=== PATIENT | female | born 1935 | race Caucasian/White ===

== ENCOUNTER 2021-09-14 10:02 | Outpatient (CLI) | payer MEDICARE, SELFPAY ==
--- NOTE | ~2021-09-14 | XR_ITS ---
EXAMINATION: XR shoulder RT min 2V DATE: 09/14/2021 10:26 INDICATION: Right upper arm injury post fall TECHNIQUE: 1. AP internally and externally rotated, AP oblique externally rotated and transscapular Y views of t he right shoulder were obtained. 2. Internal and axillary rotated views of the right humerus were obtained. 3. AP, lateral and 2 oblique views of the right elbow were obtained. COMPARISON: None FINDINGS: Normal alignment at the right shoulder and elbow. No fracture. Mild to moderate glenohumeral osteoart hritis and moderate acromioclavicular osteoarthritis. Joint space at the right elbow are relatively p reserved. No right elbow joint effusion. Right lung is clear. Chronic T12 compression fracture with o ne third vertebral body height loss. Soft tissues are unremarkable. IMPRESSION: 1. 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 No acute osseous abnormality. Reviewed, dictated and finalized at location A. PROGRAMMER IMPRESSION: 1. 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 No acute osseous abno rmality.
--- NOTE | ~2021-09-14 | XR_ITS ---
EXAMINATION: XR shoulder RT min 2V DATE: 09/14/2021 10:26 INDICATION: Right upper arm injury post fall TECHNIQUE: 1. AP internally and externally rotated, AP oblique externally rotated and transscapular Y views of t he right shoulder were obtained. 2. Internal and axillary rotated views of the right humerus were obtained. 3. AP, lateral and 2 oblique views of the right elbow were obtained. COMPARISON: None FINDINGS: Normal alignment at the right shoulder and elbow. No fracture.Mild to moderate glenohumeral osteoart hritis and moderate acromioclavicular osteoarthritis. Joint space at the right elbow are relatively p reserved. No right elbow joint effusion. Right lung is clear. Chronic T12 compression fracture with o ne third vertebral body height loss. Soft tissues are unremarkable. IMPRESSION: 1. 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 No acute osseous abnormality. Reviewed, dictated and finalized at location A. MBLER METAL BUILDING IMPRESSION: 1. 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 No acute osseous abno rmality.
== END 2021-09-14 10:03 | disposition home or self-care (01) ==
LOC: ANHIMG 10:05
PROVIDERS: PCP Physician Assistant; Visit Provider Physician Assistant
DX: S99.921A Unspecified injury of right foot, initial encounter (principal); M19.011 Primary osteoarthritis, right shoulder; M48.54XA Collapsed vertebra, not elsewhere classified, thoracic region, initial encounter for fracture
CPT/HCPCS: 73030; 73060; 73080

== ENCOUNTER 2021-10-22 09:32 | Outpatient (CLI) | payer MEDICARE, SELFPAY ==
[2021-10-22 09:55] LABS: Appearance Urine Cloudy (Clear); Bilirubin Urine Negative (Negative); Blood Urine 2+ (Negative); Glucose Urine UA Negative (Negative); Ketones Urine Negative (Negative); Leukocyte Esterase Ur 3+ LEU/UL (NEGATIVE); Nitrate Urine Negative (Negative); Protein Urine Trace mg/dL (Negative); Specific Grav Ur 1.015 (1.001-1.035); Urobilinogen Urine 0.2 mg/dL (<2.0)
[2021-10-22 09:56] LABS: Add Urine Microscopic? YES; Color Urine Light Yellow (Yellow)
[2021-10-22 10:08] LABS: Bacteria Urine Trace /hpf; Mucus Urine Rare /lpf; Squamous Epithelial Cell Urine Rare /hpf (Few); WBC Clumps Urine Present /HPF; WBC Urine >75 /hpf (0-3)
== END 2021-10-22 09:33 | disposition home or self-care (01) ==
PROVIDERS: PCP Physician Assistant; Visit Provider Physician Assistant
DX: R30.0 Dysuria (principal)
CPT/HCPCS: 81001; 87086; 87088

== ENCOUNTER 2024-05-30 15:54 | Outpatient (CLI) | payer MEDICARE, SELFPAY ==
--- NOTE | ~2024-05-30 | US_ITS ---
EXAMINATION: US carotid duplex BI DATE: 05/30/2024 17:18 INDICATION: Left facial numbness TECHNIQUE: Grayscale, color Doppler, and pulsed Doppler images of the cervical carotid arteries were obtained. The degree of vessel stenosis is placed in one of the following categories: normal, <50%, 5 0-69%, >=70% but less than near-occlusion, near-occlusion, or total occlusion. Note that percent sten osis relative to normal distal artery lumen diameter is indirectly measured from velocity measurement s as described by Kyler, et al. Radiology 2003; 229:340-346. Notes: Normal: Peak systolic velocity <125 centimeters/sec and no plaque <50%. Peak systolic velocity <125 ( EDV <40; ICA/CCA PSV ratio <2.0; used these factors only a tandem lesions or low cardiac output or co ntralateral disease) 50-69 %: PSV 125-230 (EDV 40-100; ratio 2-4) >= 70% but less than near occlusion: PSV greater than 230 (EDV > 100; ratio> 4.0) Near Occlusion: PSV that is variable; markedly narrowed lumen Occlusion: Absent flow on color/spectral Doppler and no lumen on chao scale. COMPARISON: Ultrasound dated 10/18/2018. FINDINGS: RIGHT: The right common carotid artery (CCA) peak systolic velocity (PSV) is 76 cm/s. The right internal car otid artery (ICA) PSV is 68 cm/s. The right ICA end-diastolic velocity (EDV) is 20 cm/s. The right IC A/CCA PSV ratio is 0.9. The external carotid artery (ECA) PSV is 68 cm/s. There is antegrade flow in the right vertebral artery. LEFT: The left CCA PSV is 72 cm/s. The left ICA PSV is 62 cm/s. The left ICA EDV is 10 cm/s. The left ICA/C CA PSV ratio is 0.9. The ECA PSV is 80 cm/s. There is antegrade flow in the left vertebral artery. IMPRESSION: 1. Less than 50% stenosis in the right internal carotid artery by sonographic criteria. 2. Less than 50% stenosis in the left internal carotid artery by sonographic criteria. Reviewed, dictated and finalized at location B. TIC OPERATOR IMPRESSION: 1. Less than 50% stenosis in the right internal carotid artery by sonographic c jessi. 2. Less than 50% stenosis in the left internal carotid artery by sonographic cr alyssa.
== END 2024-05-30 15:55 | disposition home or self-care (01) ==
LOC: ANHIMG 15:57
PROVIDERS: PCP Internal Medicine; Visit Provider Psychiatry & Neurology Neurology
DX: I65.23 Occlusion and stenosis of bilateral carotid arteries (principal)
CPT/HCPCS: 93880

== ENCOUNTER 2024-06-01 08:09 | Outpatient (CLI) | payer MEDICARE, SELFPAY ==
[2024-06-01 10:31] LABS: Cholesterol 203 mg/dL (0-200); HDL Direct 96 mg/dL; Triglycerides 38 mg/dL (<150)
[2024-06-01 10:42] LABS: LDL Cholesterol Direct 80 mg/dL
== END 2024-06-01 08:10 | disposition home or self-care (01) ==
LOC: ANHLAB 08:11
PROVIDERS: PCP Internal Medicine; Visit Provider Psychiatry & Neurology Neurology
DX: R79.89 Other specified abnormal findings of blood chemistry (principal)
CPT/HCPCS: 36415; 80061

== ENCOUNTER 2024-09-26 11:00 | Outpatient (CLI) | payer MEDICARE, SELFPAY ==
--- NOTE | ~2024-09-26 | XR_ITS ---
3 VIEWS LUMBAR SPINE Ordering provider: Kiet Crawford DO History: . M54.9 - Dorsalgia, unspecified . Comparison: None. FINDINGS: VERTEBRAL BODIES:Loss of height is seen in T12 suggestive of compression fracture most likely chronic . MRI evaluation advised. Otherwise, No visible fracture or subluxation. DISK SPACES: Narrowing of the disc L2-L3, L3-4, and L4-L5. SOFT TISSUES: Normal. IMPRESSION: Compression fracture of T12 most likely chronic. MRI evaluation advised. Multilevel degenerative disc disease. Reviewed, dictated and finalized at location A. RNET MARKETING CONSULTANT
--- OUTSIDE RECORDS SUMMARY | 2024-09-26 12:40 | XMS_ITS ---
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 Past Treatment and Therapy Plans No past plan information found. Lifetime Dose Tracking * Chemical Lifetime Dose Automatic Entry Manual Entr y DLP 2,549 mGycm 2,549 mGycm 0 mGycm
--- OUTSIDE RECORDS SUMMARY | 2024-09-26 12:41 | XMS_ITS | Encounter Summary ---
Author Organization [facility] Address [address] [place] [address] Care Team Providers Care Cable Tv Installer Name Role Phone Agustín Fiore MD Primary Care Provider [phone] Encounter Details Date Type Department Care Team (Late st Contact Info) Description 01/02/2020 Lab Requisition [facility] DermPath Lab [address] [place] [address] Brennan Jolly MD [address] [place] [address] Social History Tobacco Use Types Packs/Day Years Used Date Smoking Tobacco: Never Smokeless Tobacco: Never Alcohol Use Standard Drinks/Week Comments Yes 0 (1 standard drink = 0.6 oz pur e alcohol) Sex and Gender Information Value Date Recorded Sex Assigned at Not on file Gender Identity Not on file Sexual Orientation Not on file documented as of this encounter Plan of Treatment Not on file documented as of this encounter Procedures Procedure Name Priority Date/Time Associated Diagnosis Comments DERMATOPATHOLOGY Routine 01/01/2020 12:0 0 AM CDT documented in this encounter Results * DERMATOPATHOLOGY (01/01/2020 12:00 AM CDT) Case Report Dermatopathology Report Case: [id number] Authorizing Provider: Brennan Jolly MD Collected: 01/01/2020 12:00 AM Ordering Location: [facility] DermPath Lab Received: 01/02/2020 09:04 AM Pathologist: María Ervin MD Specimen: Skin, left chest 0 8:55 PM CDT DERMATOPATHOLOGY LABORATORY Final Diagnosis Specimen A. SKIN, left chest: HYPERPLASTIC (HYPERTROPHIC) ACTINIC KERATOSIS, LICHENOID (L57.0) (see microscopic description) 0 8:55 PM CDT DERMATOPATHOLOGY LABORATORY Clinical History BCCA vs AK vs Irr SK. Path# [id number] 0 8:55 PM CDT DERMATOPATHOLOGY LABORATORY Gross Description Specimen A: Received is one formalin filled container labeled with the patient's name and designated left chest. The specimen consists of a shave biopsy measuring 5x5x1 mm. Jar 0. 0 8:55 PM CDT DERMATOPATHOLOGY LABORATORY Microscopic Description Specimen A. SKIN, left chest: There is hyperkeratosis alternating with parakeratosis. There is epidermal hyperplasia with disorderly maturation of keratinocytes with nuclear pleomorphism confined to the lower half of the epidermis. The dermis shows a band-like, chronic inflammatory infiltrate with occasional apoptotic keratinocytes and some basal vacuolar alteration. 0 8:55 PM CDT DERMATOPATHOLOGY LABORATORY Disclaimer An external and internal positive and negative controls are appropriate for the histochemical, immunohistochemical and immunofluorescence stain(s) in this case (if any), except where stated explicitly. The performance characteristics of the stain(s) cited in this report were developed and its performance characteristic determined by the Dermatopathology Laboratory at [facility], directed by Dr. Red Cowart. These tests need not be, and therefore are not, approved by the [place] Food and Drug Administration. The tests are used for clinical purposes. Billing Codes Specimen Charges Stain Charges 16691 1 0 8:55 PM CDT DERMATOPATHOLOGY LABORATORY Embedded Images 0 8:55 PM CDT DERMATOPATHOLOGY LABORATORY Pathology/Cytolog y TISSUE SPECIMEN FROM SKIN / Unknown 01/01/2020 01/02/2020 9:04 AM CDT Brennan Jolly MD LAB - PATHOLOGY/CYTO LOGY ORDERABLES DERMATOPATHOLOGY LABORATORY [facility] - Department of Dermatology Copy Cutter [place]/[address] [phone] documented in this encounter Visit Diagnoses Not on filedocumented in this encounter Care Teams Cable Tv Installer Relationship Specialty Start Date End Date Agustín Fiore MD [address] [place] [address] PCP - General 05/04/12 documented as of this encounter
--- OUTSIDE RECORDS SUMMARY | 2024-09-26 12:41 | XMS_ITS | Referral Summary ---
Author Organization [facility] Address [address] [place] [address] Care Team Providers Care Crater And Packer Name Role Phone Agustín Fiore MD Primary Care Provider [phone] Source Comments [facility],non-owned Affiliates and Associated Physician Practices is amultiple site organization consisting of ambulatory clinics and hospital sitesin [place], [place], [place] and [place]. This disclosure is being madepursuant to the Care Everywhere program and may not contain all information available regarding this patient. Last updated 18.[facility] Allergies Active Allergy Reactions Criticality Noted Date Comments Cefuroxime GI Discomfort 09/07/2020 Ciprofloxacin Rash Medium 06/06/2012 Medications * Be aware that medications may not be up to date on this document. Alwaysverify current medications with the patient. 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 Overview (10/24/2017): Possible radiation exposure as teenager secondary to acne treatment Social History Tobacco Use Types Packs/Day Years Used Date Smoking Tobacco: Never Smokeless Tobacco: Never Alcohol Use Standard Drinks/Week Comments Yes 0 (1 standard drink = 0.6 oz pur e alcohol) Sex and Gender Information Value Date Recorded Sex Assigned at Not on file Gender Identity Not on file Sexual Orientation Not on file Last Filed Vital Signs Vital Sign Reading Time Taken Comments Blood Pressure 126/80 09/07/2020 10:36 AM MACHINE SHOP SUPERVISOR Pulse 72 09/07/2020 10:36 AM MACHINE SHOP SUPERVISOR Temperature 36.6 C (97.8 F) 09/07/2020 10:36 AM MACHINE SHOP SUPERVISOR Respiratory Rate 16 09/07/2020 10:36 AM MACHINE SHOP SUPERVISOR Oxygen Saturation 97% 09/07/2020 10:36 AM MACHINE SHOP SUPERVISOR Inhaled Oxygen Concentration - - Weight 56.7 kg (125 lb) 09/07/2020 10:36 AM MACHINE SHOP SUPERVISOR Height 154.9 cm (5' 1 ) 09/07/2020 10:36 AM MACHINE SHOP SUPERVISOR Body Mass Index 23.62 09/07/2020 10:36 AM MACHINE SHOP SUPERVISOR Plan of Treatment Not on file Care Teams Crater And Packer Relationship Specialty Start Date End Date Agustín Fiore MD [address] [place] [address] PCP - General 05/04/12
--- OUTSIDE RECORDS SUMMARY | 2024-09-26 12:41 | XMS_ITS | CONTINUITY OF CARE DOCUMENT ---
Author Name bridger sparks Address Unknown Organization [facility] Address [address] [place] [address] [address] [place] [address] Phone [phone] Care Team Providers Care Movie Shot Cameraman Name Role Phone Vinay Vaughn MD Unavailable [phone] SPRING STANTON, EBER Unavailable [phone] SPRING STANTON, EBER Unavailable [phone] INSURANCE PROVIDERS Payer name Policy type / Coverage type Barrett red republican ID [place] MEDICARE Medicare [id number]
--- OUTSIDE RECORDS SUMMARY | 2024-09-26 12:41 | XMS_ITS | Encounter Summary ---
Author Organization [facility] Address [address] [place] [address] Care Team Providers Care Environmental Compliance Specialist Name Role Phone Agustín Fiore MD Primary Care Provider [phone] Encounter Details Date Type Department Care Team (Late st Contact Info) Description 05/27/2023 Lab Requisition [facility] - DermPath Lab [address] [place] [id number] Brennan Jolly MD [address] [place] [address] Social History Tobacco Use Types [...] Priority Date/Time Associated Diagnosis Comments DERMATOPATHOLOGY Routine 05/25/2023 12:0 0 AM CDT documented in this encounter Results * DERMATOPATHOLOGY (05/25/2023 12:00 AM CDT) Case Report Dermatopathology Report Case: [id number] Authorizing Provider: Brennan Jolly MD Collected: 05/25/2023 12:00 AM Ordering Location: [facility] DermPath Lab Received: 05/27/2023 07:32 AM Pathologist: Leigh Hernandez MD Specimen: Skin, left shoulder 1:47 PM [facility] DERMATOPATHOLOGY LABORATORY Final Diagnosis Specimen A. 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 The specimen consists of a shave biopsy measuring 9x7x1 mm. Jar 0. 3 1:47 PM [facility] DERMATOPATHOLOGY LABORATORY Microscopic Description Specimen A. SKIN, left shoulder: The epidermis shows parakeratosis, full thickness disorderly maturation of keratinocytes, mitoses at different levels, and dyskeratotic cells. 3 1:47 PM CABLE ARMORER DERMATOPATHOLOGY LABORATORY Disclaimer An external and internal positive and negative controls are appropriate for the histochemical, immunohistochemical and immunofluorescence stain(s) in this case (if any), except where stated explicitly. The performance characteristics of the stain(s) cited in this report were developed and its performance characteristic determined by the Dermatopathology Laboratory at [facility], directed by Dr. Red Cowart. These tests need not be, and therefore are not, approved by the [place] Food and Drug Administration. The tests are used for clinical purposes. Billing Codes Specimen Charges Stain Charges 26005 1 3 1:47 PM CABLE ARMORER DERMATOPATHOLOGY LABORATORY Embedded Images 3 1:47 PM [facility] DERMATOPATHOLOGY LABORATORY Pathology/Cytolog y TISSUE SPECIMEN FROM SKIN / Unknown 05/25/2023 05/27/2023 7:32 AM CDT Brennan Jolly MD LAB - PATHOLOGY/CYTO LOGY ORDERABLES DERMATOPATHOLOGY LABORATORY [facility] - Department of Dermatology [address] [phone] documented in this encounter Visit Diagnoses Not on filedocumented in this encounter Care Teams Environmental Compliance Specialist Relationship Specialty Start Date End Date Agustín Fiore MD [address] [place] [address] PCP - General 05/04/12 documented as of this encounter
--- OUTSIDE RECORDS SUMMARY | 2024-09-26 12:41 | XMS_ITS | Clinical Summary ---
Author Organization [facility] [address] Address [address] [place] [address] Care Team Providers Care Hospice Clinical Supervisor Name Role Phone Brooks Roberts MD Primary Care Provider [phone] Allergies Active Allergy Reactions Criticality Noted Date Comments Ciprofloxacin Unknown 05/10/2019 Sulfamethoxazole-Trimethoprim Unknown 2018 Medications thyroid (ARMOUR THYROID) 60 mg tablet 60 mg Active vit D3-folic cdyc-D0-X2-B12 2,000-800-0.32 unit-mcg-mg tablet Take by mouth Active omega-3 fatty acids 1,000 mg capsule Take by mouth Active acetaminophen 500 mg capsule Take 2 capsules (1,000 mg total) by mouth every 6 (six) hours 30 tablet 9 Active Additional Information Patient not taking.Reported on 06/25/2019 levETIRAcetam (KEPPRA) 500 mg tablet Take 1 tablet (500 mg total) by mouth 2 (two) times a day for 8 doses 8 tablet 9 Active Active Problems Problem Noted Date Diagnosed Date 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 Acute pain due to trauma 05/10/2019 Compression fracture of T11 vertebra 05/10/2019 Hypothyroidism 05/08/2015 Overview (05/10/2019): Diagnosed at age 71 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/2019): 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 Overview (05/10/2019): Possible radiation exposure as teenager secondary to acne treatment Medical History Medical History Date Comments TIA (transient ischemic attack) Hypothyroid Family History Medical History Relation Name Comments Stroke Father Heart attack Mother Relation Name Status Comments Father Mother Social History Tobacco Use Types Packs/Day Years Used Date Smoking Tobacco: Never Smokeless Tobacco: Never Alcohol Use Standard Drinks/Week Comments Yes 1 (1 standard drink = 0.6 oz pur e alcohol) Comments No Sex and Gender Information Value Date Recorded Sex Assigned at Not on file Legal Sex Female 2:25 AM ASSISTANT TECHNICIAN Gender Identity Not on file Sexual Orientation Not on file Occupation Industry Job Start Date Job End Date retired Not on file Not on file Not on file Obstetrics History Last Filed Vital Signs Vital Sign Reading Time Taken Comments Blood Pressure 138/81 06/25/2019 8:40 AM ASSISTANT TECHNICIAN Pulse 92 06/25/2019 8:40 AM ASSISTANT TECHNICIAN Temperature 36.4 C (97.5 F) 05/15/2019 12:30 PM CDT Respiratory Rate 18 05/15/2019 12:30 PM CDT Oxygen Saturation 100% 05/15/2019 12:30 PM CDT Inhaled Oxygen Concentration - - Weight 54.4 kg (120 lb) 07/13/2019 12:32 PM ASSISTANT TECHNICIAN Height 154.9 cm (5' 1 ) 07/13/2019 12:32 PM ASSISTANT TECHNICIAN Body Mass Index 22.67 07/13/2019 12:32 PM ASSISTANT TECHNICIAN Plan of Treatment Not on file Insurance MEDICARE [employer] MEDICARE [employer] MEDICARE Advance Directives For more information, please contact: [phone] * Full Code (Latest Code Status on File) Date Activated Date Inactivated Comments 05/10/2019 8:43 PM 05/15/2019 6:34 PM Care Teams Hospice Clinical Supervisor Relationship Specialty Start Date End Date Brooks Roberts MD [address] [facility] [address] [place] [address] PCP - General Internal Medicine 12/14/18
--- OUTSIDE RECORDS SUMMARY | 2024-09-26 12:41 | XMS_ITS | Clinical Summary ---
Author Organization [facility] [employer] Address [address] [place] [address] Care Team Providers Care Mender Hand Name Role Phone Agustín Fiore MD Primary Care Provider [phone] Source Comments [facility] [employer],non-owned Affiliates and Associated Physician Practices is amultiple site organization consisting of ambulatory clinics and hospital sitesin [place], [place], [place] and [place]. This disclosure is being madepursuant to the Care Everywhere program and may not contain all information available regarding this patient. Last updated 18.[facility] [employer] Allergies Active Allergy Reactions Criticality Noted Date [...] exposure as teenager secondary to acne treatment Family History Medical History Relation Name Comments CVA Father Hypertension Father Heart Disease Mother Hypertension Mother Thyroid Disease Mother Cancer Neg Hx Diabetes Neg Hx Elevated Lipids Neg Hx Kidney Disease Neg Hx Relation Name Status Comments Father Mother Social [...] Comments Blood Pressure 126/80 09/07/2020 10:36 AM SCHEDULE ANNOUNCER Pulse 72 09/07/2020 10:36 AM SCHEDULE ANNOUNCER Temperature 36.6 C (97.8 F) 09/07/2020 10:36 AM SCHEDULE ANNOUNCER Respiratory Rate 16 09/07/2020 10:36 AM SCHEDULE ANNOUNCER Oxygen Saturation 97% 09/07/2020 10:36 AM SCHEDULE ANNOUNCER Inhaled Oxygen Concentration - - Weight 56.7 kg (125 lb) 09/07/2020 10:36 AM SCHEDULE ANNOUNCER Height 154.9 cm (5' 1 ) 09/07/2020 10:36 AM SCHEDULE ANNOUNCER Body Mass Index 23.62 09/07/2020 10:36 AM SCHEDULE ANNOUNCER Plan of Treatment Health Maintenance Due Date Last Done Comments BONE DENSITY TESTING 1935 MEDICARE AWV 12 MONTHS 1936 DTAP/TDAP/TD VACCINES (1 - Tdap) 1955 PNEUMOCOCCAL VACCINE 50+ (1 of 1 - PCV) 1986 ZOSTER VACCINE (1 of 2) 1986 Respiratory Syncytial Virus (RSV) Vaccine Pt: or over 60 yrs (1 - 1-dose 75+ series) 2011 COVID-19 VACCINE ( - 2023-2 5 season) 2024 INFLUENZA VACCINE (#1) 2024 DEPRESSION SCREENING 07/25/2024 HEPATITIS B VACCINE Aged Out No longe r eligible based on patient's age to complete this topic HIB VACCINE Aged Out No longer eligi ble based on patient's age to complete this topic HPV VACCINE Aged Out No longer eligi ble based on patient's age to complete this topic MENINGOCOCCAL (Group B) VACCINE Aged Out No longer eligible based on patient's age to complete this topic MENINGOCOCCAL VACCINE Aged Out No caryn mindy eligible based on patient's age to complete this topic Care Teams Mender Hand Relationship Specialty Start Date End Date Agustín Fiore MD [address] [facility] [place] [address] PCP - General 05/04/12
--- OUTSIDE RECORDS SUMMARY | 2024-09-26 12:41 | XMS_ITS | Patient Health Summary ---
Author Organization [facility] Address [address] [place] [place] [address] Care Team Providers Care Director Financial Services Name Role Phone Agustín Fiore MD Primary Care Provider [phone] Note from [facility][note 3],non-owned Affiliates and Associated Physician Practices is amultiple site organization consisting of ambulatory clinics and hospital sitesin [place], [place], [place] and [place]. This disclosure is being madepursuant to the Care Everywhere program and may not contain all information available regarding this patient. Last updated 18.[email or web address] [email or web address] Allergies * Cefuroxime(GI Discomfort) * Ciprofloxacin(Rash) -Medium Criticality Medications * Be aware that medications may not be up to date on this document. Alwaysverify current medications with the patient. * aspirin EC (ASPIRIN 81) 81 MG tablet Take 81 mg by mouth once daily * Nutritional Supplements (VITAMIN D BOOSTER PO) * thyroid (ARMOUR THYROID) 120 MG tablet Take 120 mg by mouth once daily Active Problems Problem Noted Date Diagnosed Date Hypothyroidism 05/08/2015 Malignant neoplasm of skin 06/06/2012 Nontoxic single thyroid nodule 06/06/2012 Social History Tobacco Use Types Packs/Day Years [...] Comments Blood Pressure 126/80 09/07/2020 10:36 AM CERT PHARMACY TECH Pulse 72 09/07/2020 10:36 AM CERT PHARMACY TECH Temperature 36.6 C (97.8 F) 09/07/2020 10:36 AM CERT PHARMACY TECH Respiratory Rate 16 09/07/2020 10:36 AM CERT PHARMACY TECH Oxygen Saturation 97% 09/07/2020 10:36 AM CERT PHARMACY TECH Inhaled Oxygen Concentration - - Weight 56.7 kg (125 lb) 09/07/2020 10:36 AM CERT PHARMACY TECH Height 154.9 cm (5' 1 ) 09/07/2020 10:36 AM CERT PHARMACY TECH Body Mass Index 23.62 09/07/2020 10:36 AM CERT PHARMACY TECH Procedures * DERMATOPATHOLOGY(Performed 05/25/2023) * CULTURE URINE(Performed 09/07/2020) Performed for Acute cystitis with hematuria * URINALYSIS AUTO - POINT OF CARE (AMB) STL(Performed 09/07/2020) Performed for Acute cystitis with hematuria * DERMATOPATHOLOGY(Performed 01/01/2020) * THYROID PEROXIDASE ANTIBODY(Performed 06/07/2012) * TSH(Performed 06/07/2012) Results * DERMATOPATHOLOGY (05/25/2023 12:00 AM CDT) Only the most recent of2 resultswithin the time period is included. Case Report Dermatopathology Report Case: [id number] Authorizing Provider: Brennan Jolly MD Collected: 05/25/2023 12:00 AM Ordering Location: [facility] DermPath Lab Received: 05/27/2023 07:32 AM Pathologist: Leigh Hernandez MD Specimen: Skin, left shoulder 3 1:47 PM CERT PHARMACY TECH DERMATOPATHOLOGY LABORATORY Final Diagnosis Specimen A. 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 The specimen consists of a shave biopsy measuring 9x7x1 mm. Jar 0. 1:47 PM CERT PHARMACY TECH DERMATOPATHOLOGY LABORATORY Microscopic Description Specimen A. SKIN, left shoulder: The epidermis shows parakeratosis, full thickness disorderly maturation of keratinocytes, mitoses at different levels, and dyskeratotic cells. 3 1:47 PM [facility] DERMATOPATHOLOGY LABORATORY Disclaimer An external and internal positive and negative controls are appropriate for the histochemical, immunohistochemical and immunofluorescence stain(s) in this case (if any), except where stated explicitly. The performance characteristics of the stain(s) cited in this report were developed and its performance characteristic determined by the Dermatopathology Laboratory at [facility], directed by Dr. Red Cowart. These tests need not be, and therefore are not, approved by the [place] Food and Drug Administration. The tests are used for clinical purposes. Billing Codes Specimen Charges Stain Charges 93567 1 3 1:47 PM CERT PHARMACY TECH DERMATOPATHOLOGY LABORATORY Embedded Images 3 1:47 PM CERT PHARMACY TECH DERMATOPATHOLOGY LABORATORY Pathology/Cytolog y TISSUE SPECIMEN FROM SKIN / Unknown 05/25/2023 05/27/2023 7:32 AM CDT Brennan Jolly MD LAB - PATHOLOGY/CYTO LOGY ORDERABLES DERMATOPATHOLOGY LABORATORY [facility] - Department of Dermatology [address], [address] [phone] * (ABNORMAL) CULTURE URINE (09/07/2020 10:50 AM CERT PHARMACY TECH) Urine Culture Routine Final report(A) [facility] INSURANCE BILL Result 1 (A) [facility] INSURANCE BILL Comment: Proteus mirabilis/penneri 25,000-50,000 colony forming units per mL Cefazolin <=4 ug/mL Cefazolin with an FREDDY <=16 predicts susceptibility to the oral agents cefaclor, cefdinir, cefpodoxime, cefprozil, cefuroxime, cephalexin, and loracarbef when used for therapy of uncomplicated urinary tract infections due to E. coli, Klebsiella pneumoniae, and Proteus mirabilis. Antimicrobial Susceptibility [facility] INSURANCE BILL Comment: S = Susceptible; I = Intermediate; R = Resistant P = Positive; N = Negative MICS are expressed in micrograms per mL Antibiotic RSLT#1 RSLT#2 RSLT#3 RSLT#4 Amoxicillin/Clavulanic Acid S Ampicillin S Cefepime S Ceftriaxone S Cefuroxime S Ciprofloxacin S Ertapenem S Gentamicin S Levofloxacin S Meropenem S Nitrofurantoin R Piperacillin/Tazobactam S Tetracycline R Tobramycin S Trimethoprim/Sulfa S Urine URINE SPECIMEN OBTAINED BY CLEAN CATCH PROCEDURE / Unknown 09/07/2020 10:50 AM CERT PHARMACY TECH 09/08/2020 Narrative Resulting Agency Comment Lab [facility]: [facility] [address] [facility] [id number] Dom Serna MANAGER INSURANCE-LATEXER LAB - MICRO BIOLOGY ORDERABLES [facility] INSURANCE BILL [address] [place] [address] * (ABNORMAL) URINALYSIS AUTO - POINT OF CARE (AMB) STL (09/07/2020 10:35 AM CERT PHARMACY TECH) Clarity UA POCT cloudy [facility] Color UA POCT yellow [facility] Leukocyte UA 70 Negative [facility] Nitrite UA POCT negative Negative [facility] Urobilinogen UA 0.2 0.1 - 1.0 [facility] Protein UA POCT 15 Negative [facility] pH UA 9.0(A) 5.0 - 8.0 pH units [facility] Blood UA 50 Negative [facility] Specific [place] UA POCT 1.015 1.002 - 1.030 [facility] Ketone UA negative Negative [facility] Bilirubin UA POCT negative Negative [facility] Glucose UA negative Negative [facility] Expiration Date 03/01/2022 [facility] Lot # [id number] [facility] QC Verified Yes Yes [facility] Urine URINE / Unknown 09/07/2020 1 0:35 AM CERT PHARMACY TECH Dom Serna MANAGER INSURANCE-[employer] LAB - POINT OF CARE ORDERABLES [facility] [address] [phone] * (ABNORMAL) THYROID PEROXIDASE ANTIBODY (06/07/2012 7:25 AM CERT PHARMACY TECH) Thyroid Peroxidase TPO Antibody 630(H) <35 IU/mL [facility]) Comment: Test Performed at: [facility] [address] [place] [address] EMILY FINN DO,MPH 06/07/2012 7:25 AM CERT PHARMACY TECH 06/07/2012 7:27 AM CERT PHARMACY TECH Duncan Quach MD LAB - CHEMISTRY ORD ERABLES [facility]) * TSH (06/07/2012 7:25 AM CERT PHARMACY TECH) Pathologist [facility] TSH 0.84 0.40 - 4.50 mIU/L [facility]) Comment: Test Performed at: [facility] [address] EMILY FINN DO,MPH Venous blood specimen (specimen) 06/07/2012 7:25 AM CERT PHARMACY TECH 06/07/2012 7:27 AM CERT PHARMACY TECH Duncan Quach MD LAB - CHEMISTRY ORD ERABLES [facility]) Care Teams Director Financial Services Relationship Specialty Start Date End Date Agustín Fiore MD [address] [address] PCP - General 05/04/12
--- OUTSIDE RECORDS SUMMARY | 2024-09-26 12:41 | XMS_ITS | Referral Summary ---
Author Organization [facility] [address] Address [address] [place] [address] Care Team Providers Care Shale Planer Operator Name Role Phone Brooks Roberts MD Primary Care Provider [phone]- [phone] Allergies Active Allergy Reactions Criticality Noted Date Comments Ciprofloxacin Unknown 05/10/2019 Sulfamethoxazole-Trimethoprim Unknown 2018 Medications thyroid (ARMOUR THYROID) 60 mg tablet 60 mg Active vit D3-folic [id number] 2,000-800-0.32 unit-mcg-mg tablet Take by mouth Active [...] on file Legal Sex Female 2:25 AM COST AND SALES RECORD SUPERVISOR Gender Identity Not on file Sexual Orientation Not on file Occupation Industry Job Start Date Job End Date retired Not on file Not on file Not on file Last Filed Vital Signs Vital Sign Reading Time Taken Comments Blood Pressure 138/81 06/25/2019 8:40 AM COST AND SALES RECORD SUPERVISOR Pulse 92 06/25/2019 8:40 AM COST AND SALES RECORD SUPERVISOR Temperature 36.4 C (97.5 F) 05/15/2019 12:30 PM CDT Respiratory Rate 18 05/15/2019 12:30 PM CDT Oxygen Saturation 100% 05/15/2019 12:30 PM CDT Inhaled Oxygen Concentration - - Weight 54.4 kg (120 lb) 07/13/2019 12:32 PM COST AND SALES RECORD SUPERVISOR Height 154.9 cm (5' 1 ) 07/13/2019 12:32 PM COST AND SALES RECORD SUPERVISOR Body Mass Index 22.67 07/13/2019 12:32 PM COST AND SALES RECORD SUPERVISOR Plan of Treatment Not on file Insurance MEDICARE [employer] MEDICARE [employer] MEDICARE Advance Directives For more information, please contact: [phone] * Full Code (Latest Code Status on File) Date Activated Date Inactivated Comments 05/10/2019 8:43 PM 05/15/2019 6:34 PM Care Teams Shale Planer Operator Relationship Specialty Start Date End Date Brooks Roberts MD [address] [facility] [address] [place] [address] PCP - General Internal Medicine 12/14/18
== END 2024-09-26 11:01 | disposition home or self-care (01) ==
PROVIDERS: PCP Internal Medicine; Visit Provider Internal Medicine
DX: S22.080A Wedge compression fracture of T11-T12 vertebra, initial encounter for closed fracture (principal); X58.XXXA Exposure to other specified factors, initial encounter; M51.369 Other intervertebral disc degeneration, lumbar region without mention of lumbar back pain or lower extremity pain
CPT/HCPCS: 72100

== ENCOUNTER 2024-10-09 10:22 | Outpatient (CLI) | payer MEDICARE, SELFPAY ==
--- NOTE | ~2024-10-09 | MR_ITS ---
MRI of the lumbar spine Clinical History: T12 fracture Technique: Axial T2-weighted images, and sagittal T1-weighted, T2-weighted, and T2 fat-sat images wer e acquired. Findings: There are chronic compression fractures of T11 and T12, with moderate T12 loss of height an d qjwd-nq-txdyodmr loss of height, but no marrow edema. No fracture or subluxation seen in the lumbar spine. No suspicious bone marrow signal abnormality seen. At L1-L2, there is no disc bulge or herniation. No spinal canal stenosis. There is mild to moderate b ilateral neural foraminal narrowing. At L2-L3, there is advanced degenerative disc narrowing. There is diffuse disc bulge with moderate fa cet arthropathy, resulting in moderate spinal canal stenosis/thecal sac compression. There is moderat e bilateral neural foraminal narrowing. At L3-L4, there is advanced degenerative distended with minimal bulge. There is minimal central canal stenosis. There is moderate bilateral neural foraminal narrowing, left worse than right. At L4-L5, there is advanced degenerative disc narrowing. No significant disc bulge or herniation. The re is mild facet hypertrophy. No central canal stenosis. There is mild bilateral neural foraminal macey rowing. At L5-S1, there is diffuse disc bulge with possible central protrusion. There is moderate facet arthr opathy. No central canal stenosis or definite neural foraminal narrowing. Paravertebral soft tissues are unremarkable. Impression: Chronic compression fractures of T11 and T12, as detailed above. 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 Reviewed, dictated and finalized at [facility]. Impression: Chronic compression fractures of T11 and T12, as detailed above. 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
--- OUTSIDE RECORDS SUMMARY | 2024-10-09 11:44 | XMS_ITS | Encounter Summary ---
Author Organization [facility] Address [address] [place] [address] Care Team Providers Care Casing Tier Name Role Phone Agustín Fiore MD Primary Care Provider [phone] Encounter Details Date Type Department Care Team (Late st Contact Info) Description 01/02/2020 Lab Requisition [facility] DermPath Lab [address] [place] [address] Brennan Jolly MD [address] [facility] [address] [place] [place] [address] Social History Tobacco Use Types [...] AM CDT) Case Report Dermatopathology Report Case: [id number] Authorizing Provider: Brennan Jolly MD Collected: 01/01/2020 12:00 AM Ordering Location: [facility] DermPath Lab Received: 01/02/2020 09:04 AM Pathologist: María Ervin MD Specimen: Skin, left chest 0 8:55 PM CDT DERMATOPATHOLOGY LABORATORY Final Diagnosis Specimen A. SKIN, left chest: HYPERPLASTIC (HYPERTROPHIC) ACTINIC KERATOSIS, LICHENOID (L57.0) (see microscopic description) 0 8:55 PM CDT DERMATOPATHOLOGY LABORATORY Clinical History BCCA vs AK vs Irr SK. Path# [id number] 0 8:55 PM CDT DERMATOPATHOLOGY LABORATORY Gross [...] characteristic determined by the Dermatopathology Laboratory at [facility], directed by Dr. Red Cowart. These tests need not be, and therefore are not, approved by the [place] Food and Drug Administration. The tests are used for clinical purposes. Billing Codes Specimen Charges Stain Charges 14240 1 0 8:55 PM CDT DERMATOPATHOLOGY LABORATORY Embedded Images 0 8:55 PM CDT DERMATOPATHOLOGY LABORATORY Pathology/Cytolog y TISSUE SPECIMEN FROM SKIN / Unknown 01/01/2020 01/02/2020 9:04 AM CDT Brennan Jolly MD LAB - PATHOLOGY/CYTO LOGY ORDERABLES DERMATOPATHOLOGY LABORATORY [facility] - Department of Dermatology Claim Professional Clarinda/[address] [phone] documented in this encounter Visit Diagnoses Not on filedocumented in this encounter Care Teams Casing Tier Relationship Specialty Start Date End Date Agustín Fiore MD [address] [place] [address] PCP - General 05/04/12 documented as of this encounter
--- OUTSIDE RECORDS SUMMARY | 2024-10-09 11:44 | XMS_ITS ---
Author Organization [facility] [address] Address [address] [place] [address] Care Team Providers Care Cube Machine Tender Name Role Phone Brooks Roberts MD Primary Care Provider [phone]- [phone] Active Problems Problem Noted Date Diagnosed Date [...]
--- OUTSIDE RECORDS SUMMARY | 2024-10-09 11:44 | XMS_ITS | CONTINUITY OF CARE DOCUMENT ---
Author Name bridger sparks Address Unknown Organization [facility] Office Address [address] [place] [address] [address] [place] [address] Phone [phone] Care Team Providers Care Wet End Supervisor Name Role Phone Vinay Vaughn MD Unavailable SPRING STANTON, EBER Unavailable [phone] SPRING STANTON, EBER Unavailable [phone] INSURANCE PROVIDERS Payer name Policy type / Coverage type [place] red libertarian ID [place] MEDICARE Medicare [id number]
--- OUTSIDE RECORDS SUMMARY | 2024-10-09 11:44 | XMS_ITS | Referral Summary ---
Author Organization [facility] [address] Address [address] [place] [address] Care Team Providers Care Radiologic Technologist Chief Name Role Phone Brooks Roberts MD Primary Care Provider [phone]- [phone] Allergies Active Allergy Reactions Criticality Noted Date Comments Ciprofloxacin Unknown 05/10/2019 Sulfamethoxazole-Trimethoprim Unknown 2018 Medications thyroid (ARMOUR THYROID) 60 mg tablet 60 mg Active vit D3-folic sthg-L4-P5-B12 2,000-800-0.32 unit-mcg-mg tablet Take by mouth Active [...] on file Legal Sex Female 2:25 AM RADIOLOGIST DIAGNOSTIC Gender Identity Not on file Sexual Orientation Not on file Occupation Industry Job Start Date Job End Date retired Not on file Not on file Not on file Last Filed Vital Signs Vital Sign Reading Time Taken Comments Blood Pressure 138/81 06/25/2019 8:40 AM RADIOLOGIST DIAGNOSTIC Pulse 92 06/25/2019 8:40 AM RADIOLOGIST DIAGNOSTIC Temperature 36.4 C (97.5 F) 05/15/2019 12:30 PM CDT Respiratory Rate 18 05/15/2019 12:30 PM CDT Oxygen Saturation 100% 05/15/2019 12:30 PM CDT Inhaled Oxygen Concentration - - Weight 54.4 kg (120 lb) 07/13/2019 12:32 PM RADIOLOGIST DIAGNOSTIC Height 154.9 cm (5' 1 ) 07/13/2019 12:32 PM RADIOLOGIST DIAGNOSTIC Body Mass Index 22.67 07/13/2019 12:32 PM RADIOLOGIST DIAGNOSTIC Plan of Treatment Not on file Insurance MEDICARE [employer] MEDICARE [employer] MEDICARE Advance Directives For more information, please contact: [phone] * Full Code (Latest Code Status on File) Date Activated Date Inactivated Comments 05/10/2019 8:43 PM 05/15/2019 6:34 PM Care Teams Radiologic Technologist Chief Relationship Specialty Start Date End Date Brooks Roberts MD [address] [facility] [address] [place] [address] PCP - General Internal Medicine 12/14/18
--- OUTSIDE RECORDS SUMMARY | 2024-10-09 11:44 | XMS_ITS | Clinical Summary ---
Author Organization [facility] [employer] Address [address] [facility] [place] [address] Care Team Providers Care Resident Services Manager Name Role Phone Agustín Fiore MD Primary Care Provider [phone] Source Comments [facility] [employer],non-owned Affiliates and Associated Physician Practices is amultiple site organization consisting of ambulatory clinics and hospital sitesin [place], [place], [place] and [place]. This disclosure is being madepursuant to the Care Everywhere program and may not contain all information available regarding this patient. Last updated 18.[facility] [employer] Allergies Active Allergy Reactions Criticality Noted Date [...] Comments Blood Pressure 126/80 09/07/2020 10:36 AM TELEHEALTH NURSE Pulse 72 09/07/2020 10:36 AM TELEHEALTH NURSE Temperature 36.6 C (97.8 F) 09/07/2020 10:36 AM TELEHEALTH NURSE Respiratory Rate 16 09/07/2020 10:36 AM TELEHEALTH NURSE Oxygen Saturation 97% 09/07/2020 10:36 AM TELEHEALTH NURSE Inhaled Oxygen Concentration - - Weight 56.7 kg (125 lb) 09/07/2020 10:36 AM TELEHEALTH NURSE Height 154.9 cm (5' 1 ) 09/07/2020 10:36 AM TELEHEALTH NURSE Body Mass Index 23.62 09/07/2020 10:36 AM TELEHEALTH NURSE Plan of Treatment Health Maintenance Due Date [...] to complete this topic MENINGOCOCCAL (Group B) VACC INE SHARED DECISION-MAKING Aged Out No longer eligibl e based on patient's age to complete this topic MENINGOCOCCAL GROUPS A/C/Y/W VACCINE Aged Out No longer eligible b ased on patient's age to complete this topic Care Teams Resident Services Manager Relationship Specialty Start Date End Date Agustín Fiore MD [address] [place] [address] PCP - General 05/04/12
--- OUTSIDE RECORDS SUMMARY | 2024-10-09 11:44 | XMS_ITS | Clinical Summary ---
Author Organization [facility] [address] Address [address] [place] [address] Care Team Providers Care Slide Fasteners Inspector Name Role Phone Brooks Roberts MD Primary Care Provider +1- [phone] Allergies Active Allergy Reactions Criticality Noted Date Comments Ciprofloxacin Unknown 05/10/2019 Sulfamethoxazole-Trimethoprim Unknown 2018 Medications thyroid (ARMOUR THYROID) 60 mg tablet 60 mg Active vit D3-folic hwyf-U2-A4-B12 2,000-800-0.32 unit-mcg-mg tablet Take by mouth Active [...] on file Legal Sex Female 2:25 AM STRIPPER SOFT PLASTIC Gender Identity Not on file Sexual Orientation Not on file Occupation Industry Job Start Date Job End Date retired Not on file Not on file Not on file Obstetrics History Last Filed Vital Signs Vital Sign Reading Time Taken Comments Blood Pressure 138/81 06/25/2019 8:40 AM STRIPPER SOFT PLASTIC Pulse 92 06/25/2019 8:40 AM STRIPPER SOFT PLASTIC Temperature 36.4 C (97.5 F) 05/15/2019 12:30 PM CDT Respiratory Rate 18 05/15/2019 12:30 PM CDT Oxygen Saturation 100% 05/15/2019 12:30 PM CDT Inhaled Oxygen Concentration - - Weight 54.4 kg (120 lb) 07/13/2019 12:32 PM STRIPPER SOFT PLASTIC Height 154.9 cm (5' 1 ) 07/13/2019 12:32 PM STRIPPER SOFT PLASTIC Body Mass Index 22.67 07/13/2019 12:32 PM STRIPPER SOFT PLASTIC Plan of Treatment Not on file Insurance MEDICARE [employer] MEDICARE [employer] MEDICARE Advance Directives For more information, please contact: [phone] * Full Code (Latest Code Status on File) Date Activated Date Inactivated Comments 05/10/2019 8:43 PM 05/15/2019 6:34 PM Care Teams Slide Fasteners Inspector Relationship Specialty Start Date End Date Brooks Roberts MD [address] [facility] [address] [place] [address] PCP - General Internal Medicine 12/14/18
--- OUTSIDE RECORDS SUMMARY | 2024-10-09 11:45 | XMS_ITS | Encounter Summary ---
Author Organization [facility] Address [address] [place] [address] Care Team Providers Care Form Grader Operator Name Role Phone Agustín Fiore MD Primary Care Provider +1 [phone] Encounter Details Date Type Department Care Team (Late st Contact Info) Description 05/27/2023 Lab Requisition [facility] - DermPath Lab [address] [facility] [place] [id number] Brennan Jolly MD [address] [place] [place] [address] Social History Tobacco Use Types [...] AM CDT) Case Report Dermatopathology Report Case: [id number] Authorizing Provider: Brennan Jolly MD Collected: 05/25/2023 12:00 AM Ordering Location: [facility] DermPath Lab Received: 05/27/2023 07:32 AM Pathologist: Leigh Hernandez MD Specimen: Skin, left shoulder 1:47 PM [facility] DERMATOPATHOLOGY LABORATORY Final Diagnosis Specimen A. 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 The specimen consists of a shave biopsy measuring 9x7x1 mm. Jar 0. 3 1:47 PM [facility] DERMATOPATHOLOGY LABORATORY Microscopic Description Specimen A. SKIN, left shoulder: The epidermis shows parakeratosis, full thickness disorderly maturation of keratinocytes, mitoses at different levels, and dyskeratotic cells. 3 1:47 PM [facility] DERMATOPATHOLOGY LABORATORY Disclaimer An external and internal positive and negative controls are appropriate for the histochemical, immunohistochemical and immunofluorescence stain(s) in this case (if any), except where stated explicitly. The performance characteristics of the stain(s) cited in this report were developed and its performance characteristic determined by the Dermatopathology Laboratory at [facility], directed by Dr. Red Cowart. These tests need not be, and therefore are not, approved by the [place] Food and Drug Administration. The tests are used for clinical purposes. Billing Codes Specimen Charges Stain Charges 83866 1 3 1:47 PM [facility] DERMATOPATHOLOGY LABORATORY Embedded Images 3 1:47 PM [facility] DERMATOPATHOLOGY LABORATORY Pathology/Cytolog y TISSUE SPECIMEN FROM SKIN / Unknown 05/25/2023 05/27/2023 7:32 AM CDT Brennan Jolly MD LAB - PATHOLOGY/CYTO LOGY ORDERABLES DERMATOPATHOLOGY LABORATORY [facility] - Department of Dermatology [address] [phone] documented in this encounter Visit Diagnoses Not on filedocumented in this encounter Care Teams Form Grader Operator Relationship Specialty Start Date End Date Agustín Fiore MD [address] [place] [address] PCP - General 05/04/12 documented as of this encounter
== END 2024-10-09 10:23 | disposition home or self-care (01) ==
PROVIDERS: PCP Internal Medicine; Visit Provider Internal Medicine
DX: S22.080A Wedge compression fracture of T11-T12 vertebra, initial encounter for closed fracture (principal); X58.XXXA Exposure to other specified factors, initial encounter; M47.896 Other spondylosis, lumbar region
CPT/HCPCS: 72148

== ENCOUNTER 2025-01-09 08:13 | Outpatient (CLI) | payer MEDICARE, SELFPAY ==
--- NOTE | ~2025-01-09 | CT_ITS ---
CT brain wo con Ordering provider: Kiet Crawford DO History: 89 years Female with . R41.0 - Disorientation, unspecified . Comparison: None May 10, 2019 Technique: CT of the head without contrast. Radiation reduction technique utilized.The dose-length product was 605.33 mGy-cm. FINDINGS: BRAIN PARENCHYMA AND CSF SPACES: Mild leukoaraiosis and diffuse cortical atrophy. Mild atheromatous d isease. right frontal lobe encephalomalacia is noted. No midline shift, mass effect or hemorrhage. T he brain parenchyma and CSF spaces are otherwise normal. VISUALIZED PARANASAL SINUSES: Well aerated. MASTOIDS: Well aerated. BONES: The bones appear intact. SOFT TISSUES: Visualized nasopharynx is normal. Superficial soft tissues are normal. IMPRESSION: No acute intracranial findings. Reviewed, dictated and finalized at location A.
--- OUTSIDE RECORDS SUMMARY | 2025-01-09 08:22 | XMS_ITS | Encounter Summary ---
Author Organization [facility] Address [address] [place] [address] Care Team Providers Care Parking Garage Manager Name Role Phone Agustín Fiore MD Primary Care Provider [phone] Encounter Details Date Type Department Care Team (Late st Contact Info) Description 01/02/2020 Lab Requisition [facility] DermPath Lab [address] 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 ASSET PROTECTION MANAGER Gender Identity Not on file Sexual Orientation Not on file documented as of this encounter Plan of Treatment Not on file documented as of this encounter Procedures Procedure Name Priority Date/Time Associated Diagnosis Comments DERMATOPATHOLOGY Routine 01/01/2020 12:0 0 AM CDT documented in this encounter Results * DERMATOPATHOLOGY (01/01/2020 12:00 AM CDT) Case Report Dermatopathology Report Case: [id number] Authorizing Provider: Brennan Jolly MD Collected: 01/01/2020 12:00 AM Ordering Location: [facility] DermPath Lab Received: 01/02/2020 09:04 AM Pathologist: María Ervin MD Specimen: Skin, left chest 0 8:55 PM CDT DERMATOPATHOLOGY LABORATORY Final Diagnosis Specimen A. SKIN, left chest: HYPERPLASTIC (HYPERTROPHIC) ACTINIC KERATOSIS, LICHENOID (L57.0) (see microscopic description) 0 8:55 PM CDT DERMATOPATHOLOGY LABORATORY at 2055 CDT Clinical History BCCA vs AK vs Irr SK. Path# [id number] 0 8:55 PM CDT DERMATOPATHOLOGY LABORATORY Gross [...] characteristic determined by the Dermatopathology Laboratory at [facility], directed by Dr. Red Cowart. These tests need not be, and therefore are not, approved by the [place] Food and Drug Administration. The tests are used for clinical purposes. Billing Codes Specimen Charges Stain Charges 44225 1 0 8:55 PM CDT DERMATOPATHOLOGY LABORATORY Embedded Images 0 8:55 PM CDT DERMATOPATHOLOGY LABORATORY Pathology/Cytolog y TISSUE SPECIMEN FROM SKIN / Unknown 01/01/2020 01/02/2020 9:04 AM CDT us Brennan Jolly MD LAB - PATHOLOGY/CYTOLOGY ORDER JOSE Final Result DERMATOPATHOLOGY LABORATORY [facility] - Department of Dermatology [employer] [place] [employer] [place]/[address] [phone] documented in this encounter Visit Diagnoses Not on filedocumented in this encounter Care Teams Parking Garage Manager Relationship Specialty Start Date End Date Agustín Fiore MD [address] [place] [address] PCP - General 05/04/12 documented as of this encounter
--- OUTSIDE RECORDS SUMMARY | 2025-01-09 08:22 | XMS_ITS | Clinical Summary ---
Author Organization [facility] [address] Address [address] [place] [address] Care Team Providers Care Diamond Polisher Name Role Phone Brooks Roberts MD Primary Care Provider [phone] Allergies Active Allergy Reactions Criticality Noted Date Comments Ciprofloxacin Unknown 05/10/2019 Sulfamethoxazole-Trimethoprim Unknown 2018 Medications thyroid (ARMOUR THYROID) 60 mg tablet 60 mg Active vit D3-folic himd-[id number]-B12 2,000-800-0.32 unit-mcg-mg tablet Take by mouth Active [...] on file Legal Sex Female 2:25 AM WELDING ENGINEER Gender Identity Not on file Sexual Orientation Not on file Occupation Industry Job Start Date Job End Date retired Not on file Not on file Not on file Obstetrics History Last Filed Vital Signs Vital Sign Reading Time Taken Comments Blood Pressure 138/81 06/25/2019 8:40 AM WELDING ENGINEER Pulse 92 06/25/2019 8:40 AM WELDING ENGINEER Temperature 36.4 C (97.5 F) 05/15/2019 12:30 PM CDT Respiratory Rate 18 05/15/2019 12:30 PM CDT Oxygen Saturation 100% 05/15/2019 12:30 PM CDT Inhaled Oxygen Concentration - - Weight 54.4 kg (120 lb) 07/13/2019 12:32 PM WELDING ENGINEER Height 154.9 cm (5' 1) 07/13/2019 12:32 PM WELDING ENGINEER Body Mass Index 22.67 07/13/2019 12:32 PM WELDING ENGINEER Plan of Treatment Not on file Insurance MEDICARE [employer] MEDICARE [facility] Address: [address] [place] [id number] [employer] MEDICARE Advance Directives For more information, please contact: [phone] * Full Code (Latest Code Status on File) Date Activated Date Inactivated Comments 05/10/2019 8:43 PM 05/15/2019 6:34 PM Care Teams Diamond Polisher Relationship Specialty Start Date End Date Brooks Roberts MD [address] [facility] [address] [place] [address] PCP - General Internal Medicine 12/14/18
--- OUTSIDE RECORDS SUMMARY | 2025-01-09 08:22 | XMS_ITS | Referral Summary ---
Author Organization [facility] [address] Address [address] [place] [address] Care Team Providers Care Pilot Instructor Name Role Phone Brooks Roberts MD Primary Care Provider [phone]- [phone] Allergies Active Allergy Reactions Criticality Noted Date Comments Ciprofloxacin Unknown 05/10/2019 Sulfamethoxazole-Trimethoprim Unknown 2018 Medications thyroid (ARMOUR THYROID) 60 mg tablet 60 mg Active vit D3-folic fsdy-G7-U0-B12 2,000-800-0.32 unit-mcg-mg tablet Take by mouth Active [...] on file Legal Sex Female 2:25 AM POST OFFICE MANAGER Gender Identity Not on file Sexual Orientation Not on file Occupation Industry Job Start Date Job End Date retired Not on file Not on file Not on file Last Filed Vital Signs Vital Sign Reading Time Taken Comments Blood Pressure 138/81 06/25/2019 8:40 AM POST OFFICE MANAGER Pulse 92 06/25/2019 8:40 AM POST OFFICE MANAGER Temperature 36.4 C (97.5 F) 05/15/2019 12:30 PM CDT Respiratory Rate 18 05/15/2019 12:30 PM CDT Oxygen Saturation 100% 05/15/2019 12:30 PM CDT Inhaled Oxygen Concentration - - Weight 54.4 kg (120 lb) 07/13/2019 12:32 PM POST OFFICE MANAGER Height 154.9 cm (5' 1) 07/13/2019 12:32 PM POST OFFICE MANAGER Body Mass Index 22.67 07/13/2019 12:32 PM POST OFFICE MANAGER Plan of Treatment Not on file Insurance MEDICARE [employer] MEDICARE [employer] MEDICARE Advance Directives For more information, please contact: [phone] * Full Code (Latest Code Status on File) Date Activated Date Inactivated Comments 05/10/2019 8:43 PM 05/15/2019 6:34 PM Care Teams Pilot Instructor Relationship Specialty Start Date End Date Brooks Roberts MD [address] [facility] [address] [place] [address] PCP - General Internal Medicine 12/14/18
--- OUTSIDE RECORDS SUMMARY | 2025-01-09 08:22 | XMS_ITS | CONTINUITY OF CARE DOCUMENT ---
Author Name bridger sparks Address Unknown Organization [facility] Address [address] [place] [address] [address] [place] [address] Phone [phone] Care Team Providers Care Geosciences Associate Professor Name Role Phone Vinay Vaughn MD Unavailable [phone] [place], EBER Unavailable [phone] [place], EBER Unavailable [phone] INSURANCE PROVIDERS Payer name Policy type / Coverage type [place] red green party ID [place] MEDIC[place] Medicare [id number]
--- OUTSIDE RECORDS SUMMARY | 2025-01-09 08:22 | XMS_ITS ---
Author Organization [facility] [address] Address [address] [place] [address] Care Team Providers Care Early Childhood Services Coordinator Name Role Phone Brooks Roberts MD Primary Care Provider +1- [phone] Active Problems Problem Noted Date Diagnosed Date [...]
--- OUTSIDE RECORDS SUMMARY | 2025-01-09 08:22 | XMS_ITS | Encounter Summary ---
Author Organization [facility] Address [address] [facility] [address] [place] [address] Care Team Providers Care Playground Worker Name Role Phone Agustní Fiore MD Primary Care Provider [phone] Encounter Details Date Type Department Care Team (Late st Contact Info) Description 05/27/2023 Lab Requisition [facility] - DermPath Lab 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 PICKLED MEAT Gender Identity Not on file Sexual Orientation Not on file documented as of this encounter Plan of Treatment Not on file documented as of this encounter Procedures Procedure Name Priority Date/Time Associated Diagnosis Comments DERMATOPATHOLOGY Routine 05/25/2023 12:0 0 AM CDT documented in this encounter Results * DERMATOPATHOLOGY (05/25/2023 12:00 AM CDT) Case Report Dermatopathology Report Case: [id number] Authorizing Provider: Brennan Jolly MD Collected: 05/25/2023 12:00 AM Ordering Location: [facility] DermPath Lab Received: 05/27/2023 07:32 AM Pathologist: Leigh Hernandez MD Specimen: Skin, left shoulder 1:47 PM [facility] DERMATOPATHOLOGY LABORATORY Final Diagnosis Specimen A. 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 The specimen consists of a shave biopsy measuring 9x7x1 mm. Jar 0. 3 1:47 PM [facility] DERMATOPATHOLOGY LABORATORY Microscopic Description Specimen A. SKIN, left shoulder: The epidermis shows parakeratosis, full thickness disorderly maturation of keratinocytes, mitoses at different levels, and dyskeratotic cells. 3 1:47 PM [facility] DERMATOPATHOLOGY LABORATORY Disclaimer An external and internal positive and negative controls are appropriate for the histochemical, immunohistochemical and immunofluorescence stain(s) in this case (if any), except where stated explicitly. The performance characteristics of the stain(s) cited in this report were developed and its performance characteristic determined by the Dermatopathology Laboratory at [facility], directed by Dr. Red Cowart. These tests need not be, and therefore are not, approved by the [place] Food and Drug Administration. The tests are used for clinical purposes. Billing Codes Specimen Charges Stain Charges 21580 1 3 1:47 PM [facility] DERMATOPATHOLOGY LABORATORY Embedded Images 3 1:47 PM [facility] DERMATOPATHOLOGY LABORATORY Pathology/Cytolog y TISSUE SPECIMEN FROM SKIN / Unknown 05/25/2023 05/27/2023 7:32 AM CDT us Brennan Jolly MD LAB - PATHOLOGY/CYTOLOGY ORDER JOSE Final Result DERMATOPATHOLOGY LABORATORY [facility] - Department of Dermatology [address] [phone] documented in this encounter Visit Diagnoses Not on filedocumented in this encounter Care Teams Playground Worker Relationship Specialty Start Date End Date Agustín Fiore MD [address] [place] [address] PCP - General 05/04/12 documented as of this encounter
--- OUTSIDE RECORDS SUMMARY | 2025-01-09 08:22 | XMS_ITS | Continuity of Care Document ---
Author Organization [facility] [place] [address] [place] [address] Phone Care Team Providers Care Branch Credit Counselor Name Role Phone Qureshi OD, Agus Unavailable Unavailable Procedures Procedure Date Eye Exam & Treatment Eye Exam & Treatment No Script Eye Exam & Treatment Eye Exam & Treatment Visual Functional Status Assessed AREDS Formula Prescribed/Recommended Mar Dilated Macular Exam Performed 07 Advance Directives Directive Yes / No Effective Date File Name No Information Encounters Encounter Description Practice Location Reason(s) For Visit Diagnoses Date Provider Providers Copied on Encounter [facility], [address] [place] [address] [address], [place], [place], [id number], tel:[phone] [facility] No Information Sep- 7-201 0 Qureshi OD Agus. [address], [place], [place], [facility], [place]. tel:[phone] [facility], [address], [place], [place], [id number], [place] tel:[phone] [facility] No Information Sep-2 5-200 9 Qureshi OD Agus. [address] , [address], [place], [place], [facility], . tel:[phone] [facility], [address], [place], [place], [id number], tel:[phone] [facility] No Information 200 8 Qureshi OD Agus. [address] , [address], [place], [address], [place]. tel:[phone] Referring Provider: Hood Donald, [address], [place], [address]. tel:[phone] [facility], [address], [place], [place], [id number], tel:[phone] [facility] No Information 1200 7 Qureshi OD Agus. [address] [facility] , [address], [place], [address], [place]. tel:[phone] Family History Family Member Type Diagnosis Age At Onset No Information Payers Payer name Insurance type Covered constitution party ID Authoriza tion(s) [place] [id number] Social History Type Description Quantity Date Captured Comments Sex Female Smoking Status No Information Chief Complaint And Reason For Visit No Information Reason For Referral Reason For Referral No Information History Of Present Illness Encounter Date Complaint History Of Prese nt Illness No Information Functional Status Date Functional Assessmen t No Information Instructions Date Instruction Additional Infor mation No Information Assessments Type Assessment Date No Information Patient Care Teams Name Effective Dates (start - stop) Status Members No Information
--- OUTSIDE RECORDS SUMMARY | 2025-01-09 08:22 | XMS_ITS | Clinical Summary ---
Author Organization [facility] Address [address] [place] [address] Care Team Providers Care Manager Engine Name Role Phone Agustín Fiore MD Primary Care Provider [phone] Source Comments [facility],non-owned Affiliates and Associated Physician Practices is amultiple site organization consisting of ambulatory clinics and hospital sitesin [place], [place], [place] and [place]. This disclosure is being madepursuant to the Care Everywhere program and may not contain all information available regarding this patient. Last updated 18.[facility] Allergies Active Allergy Reactions Criticality Noted Date Comments Cefuroxime GI Discomfort 09/07/2020 Ciprofloxacin Rash Medium 06/06/2012 Medications * Be aware that medications may not be up to date on this document. Alwaysverify current medications with the patient. aspirin EC (ASPIRIN 81) 81 MG tablet Take 81 mg by mouth once daily Active Nutritional Supplements (VITAMIN D BOOSTER PO) Active thyroid (ARMOUR THYROID) 120 MG tablet Take [...] on file Legal Sex Female 6:28 PM CASINO CAGE MANAGER Gender Identity Not on file Sexual Orientation Not on file Last Filed Vital Signs Vital Sign Reading Time Taken Comments Blood Pressure 126/80 09/07/2020 10:36 AM CASINO CAGE MANAGER Pulse 72 09/07/2020 10:36 AM CASINO CAGE MANAGER Temperature 36.6 C (97.8 F) 09/07/2020 10:36 AM CASINO CAGE MANAGER Respiratory Rate 16 09/07/2020 10:36 AM CASINO CAGE MANAGER Oxygen Saturation 97% 09/07/2020 10:36 AM CASINO CAGE MANAGER Inhaled Oxygen Concentration - - Weight 56.7 kg (125 lb) 09/07/2020 10:36 AM CASINO CAGE MANAGER Height 154.9 cm (5' 1) 09/07/2020 10:36 AM CASINO CAGE MANAGER Body Mass Index 23.62 09/07/2020 10:36 AM CASINO CAGE MANAGER Plan of Treatment Health Maintenance Due Date [...] VACCINE ( - 2023-2 5 season) 2024 DEPRESSION SCREENING 07/25/2024 INFLUENZA VACCINE (Season Ended) 2025 HEPATITIS B VACCINE Aged Out No longe [...] on patient's age to complete this topic Insurance MEDICARE MEDICARE COUNT INCLUDES THE [facility] INSURANCE MEDICARE SUPP Care Teams Manager Engine Relationship Specialty Start Date End Date Agustín Fiore MD [address] [place] [address] PCP - General 05/04/12
== END 2025-01-09 08:14 | disposition home or self-care (01) ==
PROVIDERS: PCP Internal Medicine; Visit Provider Internal Medicine
DX: R41.0 Disorientation, unspecified (principal); F03.90 Unspecified dementia, unspecified severity, without behavioral disturbance, psychotic disturbance, mood disturbance, and anxiety
CPT/HCPCS: 70450